=== PATIENT | female | born 1955 | race Caucasian/White ===

== ENCOUNTER → 2020-07-25 12:49 | Outpatient (CLI) | payer MEDICARE, SELFPAY ==
--- NOTE | ~2020-07-25 | XR_ITS ---
EXAMINATION: XR knee RT 3V DATE: 07/25/2020 13:12 INDICATION: Right knee pain. TECHNIQUE: 4 views of right knee were obtained. COMPARISON: None. FINDINGS: Bone alignment is normal. No fracture. There is mild tricompartmental osteoarthritis. There is moderate sized knee joint effusion. IMPRESSION: 1. Mild right knee osteoarthritis. 2. Moderate-sized right knee joint effusion. Reviewed, dictated and finalized at location A. INE OILER
== END ==
PROVIDERS: PCP Family Medicine; Visit Provider Family Medicine
DX: M17.11 Unilateral primary osteoarthritis, right knee (principal); M25.461 Effusion, right knee
CPT/HCPCS: 73562

== ENCOUNTER → 2021-07-16 09:59 | Outpatient (CLI) | payer MEDICARE, SELFPAY ==
--- NOTE | ~2021-07-16 | MM_ITS ---
EXAMINATION: MM screening elle BI w miko HISTORY: Screening mammogram TECHNIQUE: Craniocaudal and mediolateral oblique 3-D tomosynthesis images were obtained and synthetic 2-D images were generated. CAD analysis was submitted and interpreted. COMPARISON: No prior mammogram is available for comparison at this institution. BREAST PARENCHYMAL COMPOSITION: There are scattered areas of fibroglandular density. FINDINGS: There is no evidence of suspicious mass, calcification, or architectural distortion to sugg est malignancy in either breast. There has been no suspicious interval change. IMPRESSION: 1. No mammographic evidence of malignancy. 2. Recommend routine screening mammography in one year. BI-RADS Category 1: Negative Reviewed, dictated and finalized at location A. ILATION CLERK
== END ==
PROVIDERS: Visit Provider Physician Assistant
DX: Z12.31 Encounter for screening mammogram for malignant neoplasm of breast (principal)
CPT/HCPCS: 77063; 77067

== ENCOUNTER → 2021-08-12 13:15 | Outpatient (CLI) | payer MEDICARE, SELFPAY ==
--- NOTE | ~2021-08-12 | DEXA_ITS ---
Bone Density Report Name: AZAM EL Age: 66 Sex: Female Ethnicity: White Date of : 1955 Indication: postmenopausal; screening for osteoporosis; prior fracture; Referring Provider: Mandy Mac Study: Bone densitometry was performed. Exam Date: August 12, 2021 Accession number: [id number] Bone Density: Region BMD T-score Z-score Classification AP Spine (L1-L4) 0.903 -1.3 0.7 Osteopenia Femoral Neck (Left) 0.599 -2.3 -0.6 Osteopenia Total Hip (Left) 0.843 -0.8 0.6 Normal Femoral Neck (Right) 0.605 -2.2 -0.5 Osteopenia Total Hip (Right) 0.829 -0.9 0.5 Normal Total Hip Mean 0.836 -0.9 0.6 Normal World Health Organization criteria for BMD impression classify patients as: Normal (T-score at or above -1.0), Osteopenia (T-score between -1.0 and -2.5), or Osteoporosis (T-score at or below -2.5). 10-year Fracture Risk(1): Major Osteoporotic Fracture 20% Hip Fracture 3.9% Reported Risk Factors: [place] (), Neck BMD=0.599, BMI=27.5, previous fracture (1) FRAX(R) Version 3.08. Fracture probability calculated for an untreated patient. Fracture probability may be lower if the patient has received treatment. Clinical Information Provided by Patient: Has had a low trauma fracture Has used the following medications: Vitamin D Patient maximum height was 63.6 Menopause Age: 52 Does not regularly consume dairy products Drinks caffeinated beverages Onset of menses at age 9 Number of children 2 Impression: The patient has low bone mass, based on the Left Femoral Neck T-score. The patient has an estimated ten-year risk of hip fracture of 3.9% and an estimated ten-year risk of major fracture of 20%, based on the WHO FRAX algorithm. The patient has risk factors, including: previous fracture. Discussion: BONE DENSITY IS LOW AT ONE OR MORE SKELETAL SITES. THE PATIENT'S BMD AND CLINICAL RISK FACTORS CONTRIBUTE TO THIS PATIENT'S HIGH RISK OF FRACTURE. This patient's lowest T-score is low at one or more skeletal sites. It meets the World Health Organization's (WHO) criteria for ?low bone mass? (T-score between -1.0 and -2.5). The patient's 10-year risk of hip fracture and 10 year risk of a major osteoporotic fracture as calculated by FRAX exceeds the threshold where pharmacological therapy is recommended by the National Osteoporosis Foundation (NOF). However, all treatment decisions require clinical judgment and consideration of individual patient factors, including patient preferences, comorbidities, previous drug use, risk factors not captured in the FRAX model (e.g., frailty, falls, vitamin D deficiency, increased bone turnover, interval significant decline in bone density) and possible under or overestimation of fracture risk by FRAX. The patient should follow a healthful lifestyle (good nutrit
== END ==
PROVIDERS: PCP Family Medicine; Visit Provider Physician Assistant
DX: Z78.0 Asymptomatic menopausal state (principal); M85.88 Other specified disorders of bone density and structure, other site; M85.852 Other specified disorders of bone density and structure, left thigh; M85.851 Other specified disorders of bone density and structure, right thigh
CPT/HCPCS: 77080

== ENCOUNTER 2022-06-06 07:29 | Outpatient (CLI) | payer MEDICARE, SELFPAY ==
--- NOTE | 2022-06-06 07:45 | ECG_ITS ---
Measurements Intervals [place] Rate: 67 P: 50 SC: 187 QRS: 17 QRSD: 81 T: 62 QT: 374 QTc: 395 Interpretive Statements SINUS RHYTHM LOW QRS VOLTAGE IN PRECORDIAL LEADS BORDERLINE ECG NO PREVIOUS ECG AVAILABLE FOR COMPARISON Electronically Signed On 06-06-2022 8:08:36 SOLE MOLDING MACHINE OPERATOR by Emmanuel Cam D.O.
--- NOTE | 2022-06-06 07:45 | ECHO_ITS ---
Patient Info Name: Radha Colby Age: 67 years : 1955 Gender: Female Ht: 63 in Wt: 152 lbs BSA: 1.77 m2 HR: 70 bpm BP: 120 / 70 mmHg Heart Rhythm: Sinus Rhythm Technical Quality: Good Exam Date: 06/06/2022 7:55 AM Exam Location: [facility] Patient Status: Outpatient Admit Date: 06/06/2022 Staff Ordering Physician: Mandy Mac PA-C Telecommunications Field Engineer: Anabela Mijares RDCS Attending Provider: Jes Wright MD Referring Physician: Bubba NARANJO; Exam Type: CA echo doppler color flow Study Info Indications R55 - Syncope and collapse Complete two-dimensional, color flow and Doppler transthoracic echocardiogram is performed. Summary 1. Complete two-dimensional, color flow and Doppler transthoracic echocardiogram is performed. 2. Trivial amount of mitral valve regurgitation in a structurally normal-appearing valve. 3. Otherwise unremarkable echocardiogram. Left Ventricle Left ventricular chamber dimension is normal. Left ventricular systolic function is normal, estimated at 60-65%. The left ventricular diastolic function is normal. Right Ventricle Right ventricular chamber dimension is normal. Left Atria Left atrial chamber dimension is normal. Right Atria Right atrial chamber dimension is normal. Aortic Valve The aortic valve is normal. Pulmonic Valve The pulmonic valve is normal. Mitral Valve The mitral valve has normal leaflets. There is trace mitral valve regurgitation. Tricuspid Valve The tricuspid valve leaflets are normal. Pericardium/Pleural The pericardium appears normal. Aorta The aortic root size at the sinus of Valsalva is normal. Left Ventricular Outflow Tract Name Value Normal LVOT 2D LVOT Diameter 1.9 cm LVOT Doppler LVOT Peak Gradient 6 mmHg LVOT Mean Gradient 3 mmHg LVOT VTI 27 cm LVOT VTI/AV VTI Ratio 1.0 LVOT Stroke Volume 81 ml LVOT CO 5.3 l/min LVOT CI 3.0 l/min/m2 Pulmonic Valve Name Value Normal RVOT Doppler RVOT Peak Gradient 2 mmHg PV Doppler PV Peak Gradient 3 mmHg Mitral Valve Name Value Normal MV Doppler MV Decel [place] 525 cm/s2 MV PHT 46 ms MV Area (PHT) 4.8 cm2 4.0-5.0 MV Regurgitati
== END 2022-06-06 07:30 | disposition home or self-care (01) ==
PROVIDERS: PCP Family Medicine; Visit Provider Family Medicine
DX: R55 Syncope and collapse (principal); R94.31 Abnormal electrocardiogram [ECG] [EKG]
CPT/HCPCS: 93005; 93306

== ENCOUNTER → 2022-08-26 10:27 | Outpatient (CLI) | payer MEDICARE, SELFPAY ==
--- NOTE | ~2022-08-26 | XR_ITS ---
EXAM: XR wrist LT 2V DATE: 08/26/2022 11:16 HISTORY: M25.532 - Pain in left wrist . COMPARISON: None available. FINDINGS: Normal mineralization. No fracture or dislocation. No lytic or blastic lesion. Mild degene rative change at the triscaphe joint, radiocarpal joint, and trapeziometacarpal joint. No erosion or periosteal change. Soft tissue swelling about the wrist. 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 Reviewed, dictated and finalized at location K.
== END ==
PROVIDERS: PCP Family Medicine; Visit Provider Physician Assistant Medical
DX: M19.032 Primary osteoarthritis, left wrist (principal)
CPT/HCPCS: 73100

== ENCOUNTER → 2022-09-23 16:10 | Outpatient (CLI) | payer MEDICARE, SELFPAY ==
--- NOTE | ~2022-09-23 | MM_ITS ---
EXAMINATION: MM screening [place] BI w miko HISTORY: Screening mammogram TECHNIQUE: Craniocaudal and mediolateral oblique 3-D tomosynthesis images were obtained and synthetic 2-D images were generated. CAD analysis was submitted and interpreted. COMPARISON: 07/16/2021 BREAST PARENCHYMAL COMPOSITION: There are scattered areas of fibroglandular density. FINDINGS: Architectural distortion in the upper outer quadrant of the left breast likely relates to p rior excisional biopsy. No suspicious mass, calcification, or architectural distortion are identified in either breast to suggest malignancy. There has been no suspicious interval change. IMPRESSION: 1. No mammographic evidence of malignancy. 2. Recommend routine screening mammography in one year. BI-RADS Category 2: Benign finding(s). Reviewed, dictated and finalized at location A.
== END ==
PROVIDERS: PCP Family Medicine; Visit Provider Physician Assistant
DX: Z12.31 Encounter for screening mammogram for malignant neoplasm of breast (principal)
CPT/HCPCS: 77063; 77067

== ENCOUNTER → 2023-05-11 12:06 | Outpatient (CLI) | payer MEDICARE, SELFPAY ==
--- NOTE | ~2023-05-11 | XR_ITS ---
Right ankle Technique: AP, oblique, and lateral views were obtained. Clinical History: Pain Findings: No acute fracture or dislocation is seen. Osseous alignment is anatomic. Ankle mortise and other visualized joint spaces are preserved. Soft tissues are otherwise unremarkable. Impression: Unremarkable right ankle. Reviewed, dictated and finalized at location . ING AGENT Impression: Unremarkable right ankle.
== END ==
PROVIDERS: PCP Physician Assistant Medical; Visit Provider Physician Assistant Medical
DX: M25.571 Pain in right ankle and joints of right foot (principal)
CPT/HCPCS: 73610

== ENCOUNTER 2023-06-09 12:27 | Outpatient (CLI) | payer MEDICARE, SELFPAY ==
--- NOTE | ~2023-06-09 | US_ITS ---
EXAMINATION: US carotid duplex BI DATE: 06/09/2023 12:54 INDICATION: Syncope and collapse. TECHNIQUE: Grayscale, color Doppler, and pulsed Doppler images of the cervical carotid arteries were obtained. The degree of vessel stenosis is placed in one of the following categories: normal, <50%, 5 0-69%, >=70% but less than near-occlusion, near-occlusion, or total occlusion. Note that percent sten osis relative to normal distal artery lumen diameter is indirectly measured from velocity measurement s as described by Michael, et al. Radiology 2003; 229:340-346. COMPARISON: None. FINDINGS: RIGHT: The right common carotid artery (CCA) peak systolic velocity (PSV) is 97 cm/s. The right internal car otid artery (ICA) PSV is 73 cm/s. The right ICA end-diastolic velocity (EDV) is 25 cm/s. The right IC A/CCA PSV ratio is 0.8. Grayscale and color Doppler images demonstrate no evident atherosclerotic nick que or stenosis in the ICA. The external carotid artery (ECA) PSV is 58 cm/s. There is antegrade flow in the right vertebral artery. LEFT: The left CCA PSV is 114 cm/s. The left ICA PSV is 65 cm/s. The left ICA EDV is 20 cm/s. The left ICA/ CCA PSV ratio is 0.6. Grayscale and color Doppler images demonstrated no evident atherosclerotic plaq ue or stenosis in the ICA. The ECA PSV is 61 cm/s. There is antegrade flow in the left vertebral ana maria ry. IMPRESSION: 1. No evident atherosclerotic plaque or stenosis in the right internal carotid artery. 2. No evident atherosclerotic plaque or stenosis in the left internal carotid artery. Reviewed, dictated and finalized at location A. ITION WORKER IMPRESSION: 1. No evident atherosclerotic plaque or stenosis in the right internal carotid artery. 2. No evident atherosclerotic plaque or stenosis in the left internal carotid a rtery.
== END 2023-06-09 12:28 | disposition home or self-care (01) ==
PROVIDERS: PCP Family Medicine; Visit Provider Physician Assistant
DX: R55 Syncope and collapse (principal); E78.5 Hyperlipidemia, unspecified
CPT/HCPCS: 93880

== ENCOUNTER 2023-10-22 13:55 | Outpatient (CLI) | payer MEDICARE, SELFPAY ==
--- NOTE | ~2023-10-22 | MM_ITS ---
EXAMINATION: MM screening [facility] BI w miko HISTORY: Screening TECHNIQUE: Craniocaudal and mediolateral oblique 3-D tomosynthesis images were obtained and synthetic 2-D images were generated. CAD analysis was submitted and interpreted. COMPARISON: Comparison to multiple prior studies sequentially, with oldest reviewed study dated 07/16. BREAST PARENCHYMAL COMPOSITION: There are scattered areas of fibroglandular density. FINDINGS: There is no evidence of suspicious mass, calcification, or architectural distortion to sugg est malignancy in either breast. There has been no suspicious interval change. IMPRESSION: 1. No mammographic evidence of malignancy. 2. Recommend routine screening mammography in one year. BI-RADS Category 1: Negative Reviewed, dictated and finalized at location B.
== END 2023-10-22 13:56 ==
PROVIDERS: PCP Family Medicine; Visit Provider Family Medicine
DX: Z12.31 Encounter for screening mammogram for malignant neoplasm of breast (principal)
CPT/HCPCS: 77063; 77067

== ENCOUNTER 2023-10-30 10:55 | Outpatient (CLI) | payer MEDICARE, SELFPAY ==
--- NOTE | ~2023-10-30 | DEXA_ITS ---
Bone Density Report Name: AZAM EL Age: 68 Sex: Female Ethnicity: White Date of : 1955 Indication: osteopenia; prior fracture; Referring Provider: ANY, PORFIRIO Wynn Study: Bone densitometry was performed. Exam Date: October 30, 2023 Accession number: [id number] Bone Density: Region BMD T-score Z-score Classification AP Spine (L1-L4) 0.887 -1.5 0.7 Osteopenia Femoral Neck (Left) 0.584 -2.4 -0.6 Osteopenia Total Hip (Left) 0.833 -0.9 0.6 Normal Femoral Neck (Right) 0.642 -1.9 0.0 Osteopenia Total Hip (Right) 0.828 -0.9 0.6 Normal Total Hip Mean 0.831 -0.9 0.6 Normal World Health Organization criteria for BMD impression classify patients as: Normal (T-score at or above -1.0), Osteopenia (T-score between -1.0 and -2.5), or Osteoporosis (T-score at or below -2.5). 10-year Fracture Risk(1): Major Osteoporotic Fracture 21% Hip Fracture 4.9% Reported Risk Factors: [place] (), Neck BMD=0.584, BMI=27.7, previous fracture (1) FRAX(R) Version 3.08. Fracture probability calculated for an untreated patient. Fracture probability may be lower if the patient has received treatment. Previous Exams: Region Exam Age BMD T-score BMD Change BMD Change Date g/cm2 vs Baseline vs Previous AP Spine(L1-L4) 10/30/2023 68 0.887 -1.5 -0.016 -0.016 08/12/2021 66 0.903 -1.3 Total Hip(Left) 10/30/2023 68 0.833 -0.9 -0.010 -0.010 08/12/2021 66 0.843 -0.8 Total Hip(Right) 10/30/2023 68 0.828 -0.9 -0.001 -0.001 08/12/2021 66 0.829 -0.9 *Denotes significance at 95% confidence level, LSC for AP Spine = 0.022 g/cm2, LSC for Total Hip = 0.027 g/cm2 Clinical Information Provided by Patient: Has had a low trauma fracture Has used the following medications: Vitamin D, Calcium Patient maximum height was 63.6 Menopause Age: 52 Does not regularly consume dairy products Drinks caffeinated beverages Onset of menses at age 9 Number of children 2 Impression: The patient has low bone mass, based on the Left Femoral Neck T-score. The patient has an estimated ten-year risk of hip fracture of 4.9% and an estimated ten-year risk of major fracture of 21%, based on the WHO FRAX algorithm. The patient has risk factors, including: previous fracture. No significant bone loss was observed. Discussion: BONE DENSITY IS LOW AT ONE OR MORE SKELETAL SITES. THE PATIENT'S BMD AND CLINICAL RISK FACTORS CONTRIBUTE TO THIS PATIENT'S HIGH RISK OF FRACTURE. This patient's lowest T-scor
== END 2023-10-30 10:56 ==
PROVIDERS: PCP Family Medicine; Visit Provider Physician Assistant
DX: Z78.0 Asymptomatic menopausal state (principal); M85.88 Other specified disorders of bone density and structure, other site; M85.852 Other specified disorders of bone density and structure, left thigh; M85.851 Other specified disorders of bone density and structure, right thigh
CPT/HCPCS: 77080

== ENCOUNTER 2024-02-01 18:30 | Observation (INO) | payer MEDICARE, SELFPAY ==
--- NOTE | ~2024-02-01 | CT_ITS ---
Non-contrast Head CT History: Syncope Technique: Axial non-contrast imaging of the brain was performed. Dose reduction technique was used on this scan by utilizing automated exposure control and iterative reconstruction technique. The dose -length product (DLP) was 605.33 mGy-cm. Findings: There is no evidence of intracranial hemorrhage, mass lesion, or acute infarct. Brain par enchyma appears normal. The ventricles and subarachnoid spaces are normal in size. The calvarium ap pears normal. The visualized paranasal sinuses and mastoid air cells are clear. Impression: No significant abnormality seen. Reviewed, dictated and finalized at location . Impression: No significant abnormality seen.
[2024-02-01 18:52] VITALS: BP 105/70; PULSE 66; RESP 16; TEMP 36.4; O2SAT 99
--- NOTE | 2024-02-01 18:56 | ECG_ITS ---
Test Date: 2024-02-01 19:04:20 Measurements Intervals [place] Rate: 62 P: 39 WA: 216 QRS: -2 QRSD: 81 T: 63 QT: 391 QTc: 398 Interpretive Statements SINUS RHYTHM WITH FIRST DEGREE AV BLOCK BASELINE ARTIFACT- I, II, III, AVR, AVL, AVF, V1 BORDERLINE ECG No previous ECG available for comparison Electronically Signed On 02-01-2024 20:13:40 CDT by Emmanuel Cam D.O.
[2024-02-01 23:28] VITALS: PULSE 64; PULSE 70; RESP 22; TEMP 36.3; O2SAT 100
[2024-02-01 23:29] VITALS: O2SAT 100
[2024-02-02] VITALS (9 sets, daily range): BP systolic 116–146; BP diastolic 62–87; PULSE 65–76; RESP 16–18; TEMP 36.4–37; O2SAT 96–100; BMI 27.5
--- NOTE | 2024-02-02 01:19 | ED.SYNCOPE ---
HPI - Syncope General Chief Complaint: Syncope Stated Complaint: syncope Time Seen by Provider: 02/01/24 23:26 Source: patient and family Mode of arrival: EMS Limitations: no limitations History of Present Illness HPI narrative: Patient is a 68-year-old female who presents to the ER following a syncopal episode. She reports she has had a sore throat for the last couple of days. Patient says she took a children's Benadryl earlier today to help with her allergies. She reports she was in the basement and took a 15-20 minute nap, then walked upstairs to use the restroom. Patient and her reports she was feeling lightheaded so she needed her 's help to sit down on the toilet. She loss consciousness for 10-15 seconds while sitting on the toilet. Patient's reports she got very hot and sweaty prior to passing out. Her reports she did not hit her head when she lost consciousness, but slumped over. Patient's reports she was out of it and he was worried she was having a stroke. Her called EMS and patient was brought to the ER for evaluation. Patient denies any medical history. She reports she has a history of passing out when she was younger, around the age of 13. Patient reports at that time she had appendicitis. She denies loss of consciousness or syncopal episodes in the last 10 years. Patient reports she has a PCP and get her blood work drawn often. She is currently asymptomatic and denies chest pain, shortness a breath, or headache. Related Data Home Medications Medication Instructions Recorded Confirmed fish, borage, flaxseed oils-omega 1 cap PO DAILY 05/15/20 11/23/23 3,6,9 cb #1 400 mg-400 mg-400 mg cap ([place] 3-6-9 Complex) multivitamin,wk-zzzj-axprrugr 1 tablet PO DAILY 05/15/20 11/23/23 (Complete Multivitamin tablet) turmeric root extract 500 mg 500 mg PO DAILY 05/15/20 11/23/23 capsule cholecalciferol (vitamin D3) 50 50 mcg PO DAILY 05/22/22 11/23/23 mcg (2,000 unit) capsule Allergies Allergy/AdvReac Type Severity Reaction Status Date / Time No Known Allergies Allergy Verified 11/23/23 09:30 Review of Systems Review of Systems: All systems reviewed & are unremarkable except as noted in HPI and below PMFSH Past Medical History Medical History Allergies Chronic patellofemoral pain of right knee Chronic sinusitis Effusion of knee joint HLD (hyperlipidemia) Left knee DJD Lump in throat Normal colonoscopy (~2017) Osteopenia Osteoporosis Right knee DJD Surgical History Surgical History H/O lumpectomy History of appendectomy History of tubal ligation [place] teeth removed Family History Family History Mother Diabetes mellitus Hypercholesteremia Cerebrovascular accident Father Diabetes mellitus Heart disease Other Breast cancer Other Thyroid disorder Social History Social History Smoking status: Never smoker Alcohol intake: never Substance use: never Substance use type: does not use Lack of Transportation: No Lack of Food: Never True Current Housing: I Have Housing Concerned About Future Housing: No Difficulty Paying Gas/Electric Bills: No Difficulty Paying for Meds: No Currently Unemployed: No Education: Master's Degree or Higher Difficulty w/ Childcare or Family Care: No Living arrangements: with family Occupation/Education: retired Gender identity (if verbalized by the patient): Female Exam Narrative: GENERAL: Well appearing, well-nourished, non-toxic, in no acute distress. HEAD: Normocephalic, atraumatic. NECK: Supple. No adenopathy, no masses. RESPIRATORY: Airway patent, respirations nonlabored. Clear to auscultation bilat
[2024-02-02] MEDS: SODIUM CHLORIDE 0.9% IV 1,000 ML 999 ML IV CONT (01:33)
[2024-02-02 01:45] LABS: Basophils Percent Auto 0.4 % (0.2-1.2); Eosinophils Percent Auto 0.5 % (0-4.4); Hematocrit 40.8 % (37.0-47.0); Hemoglobin 14.3 g/dL (12.0-15.0); Immature Granulocyte Absolute 0.03 K/mm3 (0.00-0.031); Immature Granulocyte Percent A 0.4 % (0-0.5); Lymphocytes Absolute Auto 2.92 K/mm3 (0.9-3.2); Lymphocytes Percent Auto 36.6 % (18.3-44.2); Mean Corpuscular Hemoglobin 31.7 pg (26-34); Mean Corpuscular Volume 90.5 fl (80-100); Mean Platelet Volume 8.2 fl (7.4-10.4); Monocytes Absolute Auto 0.6 K/mm3 (0.1-0.6); Monocytes Percent Auto 7.3 % (2.6-8.5); Neutrophils Absolute Auto 4.4 K/mm3 (1.3-6.7); Neutrophils Percent Auto 54.8 % (45.5-73.1); Platelet Count Result 319 k/mm3 (150-375); Red Blood Count 4.51 M/mm3 (4.2-5.4); Red Cell Distribution Width 11.5 % (11.5-14.5)
[2024-02-02 01:54] LABS: Add Urine Microscopic? YES; Appearance Urine Cloudy (Clear); Bacteria Urine None Seen /hpf; Bilirubin Urine Negative (Negative); Blood Urine Negative (Negative); Color Urine Yellow (Yellow); Glucose Urine UA Negative (Negative); Ketones Urine Negative (Negative); Leukocyte Esterase Ur Negative LEU/UL (Negative); Need Manual Microscopic Reviewed; Nitrate Urine Negative (Negative); Non Pathogenic Casts 0-2; Protein Urine Negative (Negative); RBC Urine 0-2 /hpf (0-2); Specific Grav Ur 1.005 (1.001-1.035); Squamous Epithelial Cell Urine None Seen /hpf (Few); Urobilinogen Urine 0.2 mg/dL (<2.0); WBC Urine 0-5 /hpf (0-3)
[2024-02-02 01:56] LABS: Partial Thromboplastin Time 25.1 Seconds (22.3-36.8); Prothrombin Time 13.2 Seconds (11.1-14.7)
[2024-02-02 01:58] LABS: Alanine Aminotransferase 19 U/L (6-35); Albumin Level 4.7 g/dL (3.5-5.1); Alkaline Phosphatase 66 U/L (38-126); Anion Gap 8 mmol/L (4-12); Aspartate Amino Transferase 32 U/L (14-36); Bilirubin,Total 0.8 mg/dL (0.2-1.3); Blood Urea Nitrogen 5 mg/dL (7-17); Calcium 9.4 mg/dL (8.4-10.2); Carbon Dioxide 27 mmol/L (22-30); Chloride 95 mmol/L (98-107); Estimated CRCL calculation 69 ml/min; Estimated Glomerular Filt Rate > 60; Glucose 110 mg/dL (65-110); Magnesium 2.1 mg/dL (1.6-2.3); Potassium 4.1 mmol/L (3.4-5.0); Sodium 130 mmol/L (137-145)
[2024-02-02 02:01] LABS: D Dimer 0.37 ug/mL (<0.48)
[2024-02-02 02:10] LABS: NT Pro B Type Natriuretic Pept < 20 pg/mL (19.9-100); Troponin I < 0.012 ng/mL (0.000-0.034)
[2024-02-02 02:14] LABS: Influenza A QL RT-PCR Negative (Negative); Influenza B QL RT-PCR Negative (Negative); RSV RNA, RT-PCR Negative (Negative); SARS-CoV-2 RNA PCR Negative (Negative)
[2024-02-02] MEDS: SODIUM CHLORIDE 0.9% IV 1,000 ML 125 ML IV CONT ×2 (03:20→11:19)
--- NOTE | 2024-02-02 04:09 | ADMGEN ---
This patient, Radha Colby, was admitted to Medical Room 251-01. Patient/family oriented to hospital policies and general routines including ID bracelet, bed and alarms, visiting hours, pain management, procedures, bathroom and other care routines, personal items, smoking policy, room service/diet, and visiting hours. Information on how to activate the Rapid Response Team has been discussed. Patient/Family are encouraged to report perceived risks to care and to ask questions if they do not understand what they are told or what they should do.
--- NOTE | 2024-02-02 07:58 | PM.CNCAR ---
Assessment and Plan Assessment and plan (1) Episode of syncope: Code(s): R55 - Syncope and collapse Status: Acute Assessment and Plan: Probably vasovagal episode in setting of dehydration and on toilet. Advise to keep well hydrated and if feeling dizzy to lie down immediately to avoid passing out. She is receiving IVF. Obtain echo. If echo is OK and no longer dizzy, may d/c home from cardiology standpoint. (2) Acute dehydration: Code(s): E86.0 - Dehydration Status: Acute History of Present Illness History of Present Illness Consult date/time: 02/02/24 07:58 Reason For Visit: Syncopal epsiode, Dehydration Narrative: 68 yr old woman presents to ER with syncope. She has no cardiac issues. She reports having sore throat for a couple of days, took Benadryl yesterday. She felt lightheadedness, went to restroom and while sitting on toilet, became hot and sweaty and passed out for 15 seconds. She can walk 3 miles normally without any problems. She feels great now. Denies any more dizziness, no chest pain or sob or palpitations. Review of Systems Review of Systems: All systems reviewed & are unremarkable except as noted in HPI and below Constitutional: Constitutional: Reports as per HPI, Denies chills and Denies fever(s) Cardiovascular: Cardiovascular: Reports as per HPI, Denies chest pain and Denies irregular heart rhythm Respiratory: Respiratory: Reports as per HPI and Denies dyspnea Gastrointestinal: Gastrointestinal: Reports as per HPI and Denies abdominal pain Genitourinary: Genitourinary: Reports as per HPI and Denies dysuria Musculoskeletal: Musculoskeletal: Reports as per HPI Neurologic: Reports as per HPI, Reports dizziness and Reports syncope [facility] Past Medical History Medical History Allergies Chronic patellofemoral pain of right knee Chronic sinusitis Effusion of knee joint HLD (hyperlipidemia) Left knee DJD Lump in throat Normal colonoscopy (~2017) Osteopenia Osteoporosis Right knee DJD Surgical History Surgical History H/O lumpectomy History of appendectomy History of tubal ligation [place] teeth removed Family History Family History Mother Diabetes mellitus Hypercholesteremia Cerebrovascular accident Father Diabetes mellitus Heart disease Other Breast cancer Other Thyroid disorder Social History Social History Smoking status: Never smoker Alcohol intake: never Substance use: never Substance use type: does not use Do You Feel Safe in your Home?: Yes Lack of Transportation: No Lack of Food: Never True Current Housing: I Have Housing Concerned About Future Housing: No Difficulty Paying Gas/Electric Bills: No Difficulty Paying for Meds: No Currently Unemployed: No Education: Master's Degree or Higher Difficulty w/ Childcare or Family Care: No Living arrangements: with family Occupation/Education: retired Gender identity (if verbalized by the patient): Female Spiritual care concerns: No Meds Home Medications and Allergies Home Medications Medication Instructions Recorded Confirmed Type fish, borage, flaxseed oils-omega 1 cap PO DAILY 05/15/20 02/02/24 History 3,6,9 cb #1 400 mg-400 mg-400 mg cap ([place] 3-6-9 Complex) multivitamin,ob-dxap-lmcptoqh 1 tablet PO DAILY 05/15/20 02/02/24 History (Complete Multivitamin tablet) turmeric root extract 500 mg 500 mg PO DAILY 05/15/20 02/02/24 History capsule cholecalciferol (vitamin D3) 50 50 mcg PO DAILY 05/22/22 02/02/24 History mcg (2,000 unit) capsule Allergies Allergy/AdvReac Type Severity Reaction Status Date / Time No Known Allergies Allergy Verified 02/02/24 03:35 Vital S
--- NOTE | 2024-02-02 08:26 | PM.SD2 ---
Same Day Admit/Disch: HPI History of Present Illness Chief complaint: Syncopal epsiode, Dehydration Narrative: This is a 68-year-old female with a past medical history significant for hyperlipidemia, osteoporosis, and seasonal allergies who presents to the emergency room after suffering a syncopal episode. The patient provides the following history earlier this week she started having sore throat. She felt that her symptoms were related to her seasonal allergies. She states that yesterday she had an apple and that was about it because her throat was hurting and then she went down to the basement to take a 20 minute. She had also taken some children's Benadryl earlier in the day because she was having this sore throat and seasonal allergy symptoms. After her nap she went upstairs and went to the bathroom and she called her because she was not feeling well. While use with her in the bathroom she went unresponsive for about 20 seconds. Her states she had ?glassy eyes . The patient states she has had syncopal episodes before and she knows the symptoms coming on and can sit down before falling and hitting her head. Upon arrival to the emergency room labs were fairly unremarkable. Her sodium was low at 130. Urinalysis was negative and viral respiratory panel was negative. Her vital signs were stable blood pressure 117/62, heart rate 73, 99% on room air and afebrile. The patient was given a L of fluids will and started on continuous fluids at 125 mL an hour. She was admitted for observation. Dr. Cam was consulted by the emergency room provider a and recommended an outpatient echocardiogram and follow-up with PCP. The patient's symptoms have all resolved after IV fluid resuscitation. She is eating and drinking a diet and denies any pain. She also denies headache, dizziness, chest pain, shortness a breath, abdominal pain, nausea, vomiting, diarrhea or constipation. She does have a sore throat but it is much improved over the last few days. Overall the patient did well was discharged home in stable condition with PCP follow-up in an outpatient echo. [facility] Past Medical History Medical History Allergies Chronic patellofemoral pain of right knee Chronic sinusitis Effusion of knee joint HLD (hyperlipidemia) Left knee DJD Lump in throat Normal colonoscopy (~2016) Osteopenia Osteoporosis Right knee DJD Surgical History Surgical History H/O lumpectomy History of appendectomy History of tubal ligation [place] teeth removed Family History Family History Mother Diabetes mellitus Hypercholesteremia Cerebrovascular accident Father Diabetes mellitus Heart disease Other Breast cancer Other Thyroid disorder Social History Social History Smoking status: Never smoker Alcohol intake: never Substance use: never Substance use type: does not use Do You Feel Safe in your Home?: Yes Lack of Transportation: No Lack of Food: Never True Current Housing: I Have Housing Concerned About Future Housing: No Difficulty Paying Gas/Electric Bills: No Difficulty Paying for Meds: No Currently Unemployed: No Education: Master's Degree or Higher Difficulty w/ Childcare or Family Care: No Living arrangements: with family Occupation/Education: retired Gender identity (if verbalized by the patient): Female Spiritual care concerns: No Same Day Admit/Disch: Med Pre-admit Medications Home Medications Medication Instructions Recorded Confirmed Type fish, borage, flaxseed oils-omega 1 cap PO DAILY 05/15/20 02/02/24 History 3,6,9 cb #1 400 mg-400 mg-400 mg cap ([place] 3-6-9 Complex) multivitamin,cc-mupw-aszdamkj 1 tablet PO DAILY 05/15/20 02/02/24 Hist
== END 2024-02-02 15:16 | disposition home or self-care (01) ==
LOC: ANHED 02-02 03:08 → ANH2MED 02-02 03:51
PROVIDERS: Admitting Provider Internal Medicine; Emergency Provider Registered Nurse; PCP Family Medicine; Visit Provider Nurse Practitioner Acute Care
DX: R55 Syncope and collapse (principal); E86.0 Dehydration; E78.5 Hyperlipidemia, unspecified; M81.0 Age-related osteoporosis without current pathological fracture; Z20.822 Contact with and (suspected) exposure to COVID-19
CPT/HCPCS: 36415; 70450; 80053; 81001; 83735; 83880; 84484; 85025; 85380; 85610; 85730; 87637; 93005; 96360; 96361; 99285; G0378; J7030

== ENCOUNTER 2024-02-18 08:26 | Outpatient (CLI) | payer MEDICARE, SELFPAY ==
--- NOTE | 2024-02-18 08:45 | ECHO_ITS ---
Patient Info Name: Radha Colby Age: 68 years : 1955 Gender: Female Ht: 63 in Wt: 150 lbs BSA: 1.76 m2 HR: 78 bpm BP: 97 / 66 mmHg Technical Quality: Good Exam Date: 02/18/2024 8:57 AM Exam Location: Echo Lab Patient Status: Outpatient Admit Date: 02/18/2024 Staff Ordering Physician: Jes Wright MD Attending Provider: Jes Wright MD Referring Physician: Kyle QUICK; Exam Type: CA echo doppler color flow Study Info Complete two-dimensional, color flow and Doppler transthoracic echocardiogram is performed. Strain analysis performed. Summary 1. Complete two-dimensional, color flow and Doppler transthoracic echocardiogram is performed. 2. LV size is normal. LV wall thickness is normal. LV systolic function is normal. The LVEF is calculated to be 65% with normal wall motion. 3. Normal LV diastolic function. 4. The right ventricle size and systolic function is normal. 5. No significant valvular pathologies found on this study. Left Ventricle LV size is normal. LV wall thickness is normal. LV systolic function is normal. The LVEF is calculated to be 65% with normal wall motion. Normal LV diastolic function. Left ventricular global strain is estimated at -15.6%. Right Ventricle The right ventricle size and systolic function is normal. Left Atria The left atrial size is normal. Right Atria The right atrial size is normal. Aortic Valve The aortic valve is trileaflet and appears thickened. There is no aortic stenosis. There is mild aortic regurgitation. Pulmonic Valve The pulmonic valve appears normal. There is trivial pulmonary regurgitation. Mitral Valve The mitral valve leaflets are thin and pliable. There is trivial mitral regurgitation. Tricuspid Valve The tricuspid valve is normal. There is mild tricuspid regurgitation. The measured PA systolic pressure is 29 mmHg. Pericardium/Pleural There is no pericardial effusion seen. Inferior Vena Cava Normal inferior vena cava with >50% collapse upon inspiration consistent with normal right atrial pressure, 3 mmHg. Aorta The aortic root at the level of the sinus of Valsalva is normal in size measuring 2.6 cm. Left Ventricular Outflow Tract Name Value Normal LVOT 2D LVOT Diameter 2.0 cm Pulmonic Valve Name Value Normal RVOT Doppler RVOT Peak Gradient 2 mmHg PV Doppler PV Peak Gradient 2 mmHg Mitral Valve Name Value Normal MV Doppler MV Decel [place] 326 cm/s2 MV PHT 45 ms MV Area (PHT) 4.9 cm2 4.0-5.0 MV Diastolic Function MV E Peak Velocity
== END 2024-02-18 08:27 | disposition home or self-care (01) ==
PROVIDERS: PCP Family Medicine; Visit Provider Family Medicine
DX: R55 Syncope and collapse (principal)
CPT/HCPCS: 93306

== ENCOUNTER 2024-07-31 11:10 | Emergency (ER) | payer MEDICARE, SELFPAY ==
--- NOTE | ~2024-07-31 | XR_ITS ---
Portable chest x-ray Comparison: None Clinical History: Indigestion Findings: Lungs are clear, without focal consolidation or pleural effusion. Cardiomediastinal silho uette is unremarkable. Bones and soft tissues are unremarkable. Impression: Normal chest. Reviewed, dictated and finalized at location . Impression: Normal chest.
--- OUTSIDE RECORDS SUMMARY | 2024-07-31 11:12 | XMS_ITS | Clinical Summary ---
Author Organization [facility] [address] Address [address] [place] [address] Care Team Providers Care Travel Trailer Components Assembler Name Role Phone Jes Wright MD Primary Care Provider [phone] Allergies No known active allergies Medications No known medications Active Problems No known active problems Surgical History Surgery Date Site/Laterality Comments APPENDECTOMY WISDOM TOOTH EXTRACTION TUBAL LIGATION Medical History Medical History Date Comments Hypercholesteremia Family History Medical History Relation Name Comments Arthritis Other Heart disease Other Hypertension Other Stroke Other Relation Name Status Comments Other Social History Tobacco Use Types Packs/Day Years Used Date Smoking Tobacco: Never Personal Safety Answer Date Recorded Getting School Help Needed Not on file 06/27 Comments Unknown Sex and Gender Information Value Date Recorded Sex Assigned at Not on file 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 Gender Identity Female 10/12/2020 10:34 PM CDT Sexual Orientation Not on file Obstetrics History Last Filed Vital Signs Vital Sign Reading Time Taken Comments Blood Pressure 113/73 10/16/2020 8:30 AM CDT Pulse 71 10/16/2020 8:30 AM CDT Temperature 36.6 C (97.8 F) 08/22/2020 10:33 AM CDT Respiratory Rate - - Oxygen Saturation - - Inhaled Oxygen Concentration - - Weight 68.5 kg (151 lb) 10/16/2020 8:30 AM CDT Height 162.6 cm (5' 4 ) 10/16/2020 8:30 AM CDT Body Mass Index 25.92 10/16/2020 8:30 AM CDT Plan of Treatment Not on file Insurance T MEDICARE T MEDICARE Care Teams Travel Trailer Components Assembler Relationship Specialty Start Date End Date Jes Wright MD PCP - General Family Medicine 08/22/20
--- OUTSIDE RECORDS SUMMARY | 2024-07-31 11:12 | XMS_ITS | Referral Summary ---
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
--- NOTE | 2024-07-31 11:17 | ECG_ITS ---
Test Date: 2024-07-31 11:25:40 Measurements Intervals [place] Rate: 75 P: 44 AK: 179 QRS: 15 QRSD: 82 T: 46 QT: 363 QTc: 407 Interpretive Statements SINUS RHYTHM POSSIBLE INFERIOR MYOCARDIAL INFARCTION , PROBABLY OLD [30 ms Q WAVE IN II/aVF] Compared to ECG 02/01/2024 19:04:20 Myocardial infarct finding now present First degree AV block no longer present Electronically Signed On 08-01-2024 11:11:46 CDT by Liam Neri M.D.
[2024-07-31 11:19] VITALS: BP 135/82; PULSE 81; RESP 18; TEMP 36.4; O2SAT 100
[2024-07-31 11:31] LABS: Basophils Percent Auto 0.6 % (0.2-1.2); Eosinophils Absolute Auto 0.1 K/mm3 (0-0.3); Eosinophils Percent Auto 0.8 % (0-4.4); Hematocrit 42.6 % (37.0-47.0); Hemoglobin 14.6 g/dL (12.0-15.0); Immature Granulocyte Absolute 0.02 K/mm3 (0.00-0.031); Immature Granulocyte Percent A 0.3 % (0-0.5); Lymphocytes Absolute Auto 2.71 K/mm3 (0.9-3.2); Lymphocytes Percent Auto 37.3 % (18.3-44.2); Mean Corpuscular HGB Conc 34.3 g/dl (32-36); Mean Corpuscular Hemoglobin 31.4 pg (26-34); Mean Corpuscular Volume 91.6 fl (80-100); Mean Platelet Volume 8.3 fl (7.4-10.4); Monocytes Absolute Auto 0.4 K/mm3 (0.1-0.6); Monocytes Percent Auto 5.9 % (2.6-8.5); Neutrophils Percent Auto 55.1 % (45.5-73.1); Platelet Count Result 310 k/mm3 (150-375); Red Blood Count 4.65 M/mm3 (4.2-5.4); Red Cell Distribution Width 11.9 % (11.5-14.5); White Blood Count 7.3 K/mm3 (4.5-10.0)
--- OUTSIDE RECORDS SUMMARY | 2024-07-31 11:35 | XMS_ITS | Referral Summary ---
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
--- OUTSIDE RECORDS SUMMARY | 2024-07-31 11:35 | XMS_ITS | Clinical Summary ---
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
--- NOTE | 2024-07-31 11:39 | ED.NAVMDI ---
HPI - Nausea/Vomiting/Diarrhea General Chief complaint: Nausea/Vomiting/Diarrhea Stated complaint: Indigestion x 3 days Time Seen by Provider: 07/31/24 11:29 History of Present Illness HPI Narrative: 69-year-old otherwise healthy female presenting to the emergency department for evaluation of indigestion sensation for last 3 days associated some diarrhea. Patient denies any chest pain or chest pressure states that she has some pain retrosternally the feels like she needs to burp or belch. Endorses 3 days of loose diarrhea as well. No recent travel or injuries. No recent antibiotic use. No at home with similar symptoms. Endorses some cough and congestion but no other flu-like symptoms. No shortness of breath. Patient denies any cardiac history, states she is not taking prescription medications regularly and otherwise is healthy. She has a family history of cardiac disease and was worried that could be heart related. Symptoms going on for last 3 days intermittently patient presently states that she does not have any symptoms. Related Data Home Medications ?Medication ?Instructions ?Recorded ?Confirmed ?Last Taken ?Type fish, borage, flaxseed oils-omega 1 cap PO DAILY 05/15/20 02/02/24 02/01/24 History 3,6,9 cb #1 400 mg-400 mg-400 mg cap ([place] 3-6-9 Complex) multivitamin,ro-mreo-ndyezxgs 1 tablet PO DAILY 05/15/20 02/02/24 02/01/24 History (Complete Multivitamin tablet) turmeric root extract 500 mg 500 mg PO DAILY 05/15/20 02/02/24 02/01/24 History capsule cholecalciferol (vitamin D3) 50 50 mcg PO DAILY 05/22/22 02/02/24 02/01/24 History mcg (2,000 unit) capsule Allergies Allergy/AdvReac Type Severity Reaction Status Date / Time No Known Allergies Allergy Verified 07/31/24 11:11 Review of Systems Review of Systems: As reviewed above in HPI [facility] Past Medical History Medical History Effusion of knee joint Chronic patellofemoral pain of right knee Left knee DJD Right knee DJD Allergies Osteoporosis Osteopenia Normal colonoscopy (~2016) Chronic sinusitis HLD (hyperlipidemia) Lump in throat Surgical History Surgical History H/O lumpectomy History of tubal ligation [place] teeth removed History of appendectomy Family History Family History Mother Diabetes mellitus Hypercholesteremia Cerebrovascular accident Father Diabetes mellitus Heart disease Other Breast cancer Other Thyroid disorder Social History Social History Smoking status: Never smoker Alcohol intake: never Substance use: never Substance use type: does not use Do You Feel Safe in your Home?: Yes Lack of Transportation: No Lack of Food: Never True Current Housing: I Have Housing Concerned About Future Housing: No Difficulty Paying Gas/Electric Bills: No Difficulty Paying for Meds: No Currently Unemployed: No Education: Master's Degree or Higher Difficulty w/ Childcare or Family Care: No Living arrangements: with family Occupation/Education: retired Gender identity (if verbalized by the patient): Female Spiritual care concerns: No Exam Narrative: GENERAL: [Well-appearing, well-nourished, and in no acute distress.] HEAD: [Normocephalic, atraumatic.] EYES: [PERRLA and EOMI.] ENT: Nares clear, no rhinorrhea or epistaxis. Mucous membranes moist. NECK: Supple. CHEST: [Clear to auscultation. No respiratory distress.] HEART: [Regular rate and rhythm]. No murmur heard. [Normal peripheral pulses.] ABDOMEN: [Soft, nondistended], [nontender], [No rigidity or guarding] EXTREMITIES: Normal range of motion. [No edema.] SKIN: Warm, dry, no rash. NEURO: [No focal deficits]. Alert and oriented [x3.] PSYCH: [Normal mood and affect.] Course Vital Signs Vital signs: Vital Signs Temperature 36.4 C 07/31/24 11:19 Pulse Rate 81 07/31/24 11:19 Respiratory Rate 18 07/31/24 11:19 Blood Pressure 135/82 07/31/24 11:19 Pulse Oximetry 100 07/31/24 11:19 Oxygen Delivery Room Air 07/31/24 11:19 Temperature 36.4 C 07/31/24 11:19 Pulse Rate 81 07/31/24 11:19 Respiratory Rate 18 07/31/24 11:19 Blood Pressure 135/82 07/31/24 11:19 Pulse Oximetry 100 07/31/24 11:19 Oxygen Delivery Room Air 07/31/24 11:19 MDM - Nausea/Vomiting/Diarrhea MDM Narrative Medical decision making narrative: 69-year-old otherwise healthy female presenting for evaluation of indigestion for and diarrhea for last 3 days. She is otherwise well-appearing not any acute distress and has normal vital signs without any tachycardia, fever, hypoxia blood pressure elevations. She has a benign physical examination was soft nontender nondistended abdomen, 2+ radial pulses, warm extremities, clear breath sounds, clear S1-S2. She describes indigestion type sensations with feeling like she needs to belch and fullness behind her sternum which likely points to a GI process such as gastritis, gastroenteritis, GERD, indigestion. Low suspicion for ACS however given her age and family history of cardiac disease in her workup was ordered including a troponin, CBC, CMP, chest x-ray, EKG and lipase. She was treated with Pepcid Maalox, placed on groundwater monitoring technician and pulse oximetry and re-evaluated frequently. Workup shows no leukocytosis or anemia. Negative troponin. Negative lipase. Normal renal and hepatic function panel. Chest x-ray without any findings. Patient remained asymptomatic while here in the emergency department. She is safe and stable for discharge home at this time with regular PCP follow-up. She will be given prescriptions for Pepcid and Maalox as needed for indigestion. She was given return precautions and safely discharged home at this time. Medical Records Attestation: I reviewed the patient's medical records. Lab Data Attestation: I reviewed the patient's lab results. 07/31/24 11:26 07/31/24 11:26 Labs: Lab Results 07/31/24 Range/Units 11:26 WBC 7.3 (4.5-10.0) K/mm3 RBC 4.65 (4.2-5.4) M/mm3 Hgb 14.6 (12.0-15.0) g/dL Hct 42.6 (37.0-47.0) % MCV 91.6 (80-100) fl MCH 31.4 (26-34) pg MCHC 34.3 (32-36) g/dl RDW 11.9 (11.5-14.5) % Plt Count 310 (150-375) k/mm3 MPV 8.3 (7.4-10.4) fl Immature Gran % (Auto) 0.3 (0-0.5) % Neut % (Auto) 55.1 (45.5-73.1) % Lymph % (Auto) 37.3 (18.3-44.2) % [place] % (Auto) 5.9 (2.6-8.5) % Eos % (Auto) 0.8 (0-4.4) % Baso % (Auto) 0.6 (0.2-1.2) % Lymph # (Auto) 2.71 (0.9-3.2) K/mm3 [place] # (Auto) 0.4 (0.1-0.6) K/mm3 Eos # (Auto) 0.1 (0-0.3) K/mm3 Baso # (Auto) 0.0 (0.0-0.1) K/mm3 Abs Immat Gran (auto) 0.02 (0.00-0.031) K/mm3 Absolute Neuts (auto) 4.0 (1.3-6.7) K/mm3 Absolute Nucleated RBC 0.000 (0.0-0.012) K/mm3 Nucleated RBC % 0.0 (0.0-0.2) % PT 12.4 (11.1-14.7) Seconds INR 0.9 APTT 24.1 (22.3-36.8) Seconds Sodium 135 L (137-145) mmol/L Potassium 3.9 (3.4-5.0) mmol/L Chloride 98 (98-107) mmol/L Carbon Dioxide 25 (22-30) mmol/L Anion Gap 12 (4-12) mmol/L BUN 10 D (7-17) mg/dL Creatinine 0.63 L (0.7-1.0) mg/dL Estim Creat Clear Calc Not Reportable Estimated GFR > 60 (59 - ) Glucose 130 H (65-110) mg/dL Calcium 10.7 H (8.4-10.2) mg/dL Total Bilirubin 0.6 (0.2-1.3) mg/dL AST 29 (14-36) U/L ALT 23 (6-35) U/L Alkaline Phosphatase 75 (38-126) U/L Troponin I < 0.012 (0.000-0.034) ng/mL Total Protein 8.0 (6.3-8.2) g/dL Albumin 4.8 (3.5-5.1) g/dL Lipase 85 (23-300) U/L Imaging Data Attestation: I personally reviewed and interpreted this imaging study as follows: My impression: Impressions Chest X-Ray 07/31/24 11:33 Impression: Normal chest. ECG Data EKG #1: Attestation: I personally reviewed and interpreted this ECG as follows: ECG completion date: 07/31/24 ECG completion time: : Prior ECG tracings: available for review Interpretation: No ST segment elevations, depressions or inversions. Regular rate, regular rhythm, regular axis. QTC 407, QRS 82, LA 179. No significant interval change compared to prior EKG in the EMR. Overall normal sinus rhythm. Discharge Plan Discharge Clinical Impression: Indigestion, Retrosternal discomfort Patient Disposition: Home, Self-Care Condition: Stable Instructions: Antibiotic Form, Indigestion (ED) Additional Instructions: Your cardiac workup was very reassuring, no signs of any cardiac issue or damage. Your electrolytes and liver/kidney tests were all reassuring. X-ray shows no findings. We will send you home with some Pepcid and Maalox for symptom control of your indigestion. Follow-up with regular doctor. Return with any new or worsening concerns at any time. Patient Language: Welsh Prescriptions: New alum-mag hydroxide-simeth [Maalox Advanced] 200-200-20 mg/5 mL suspension 15 ml PO QID PRN (Reason: indigestion) Qty: 3000 0RF Rx Instructions: administer between meals and at bedtime famotidine [Pepcid] 20 mg tablet 20 mg PO BID Qty: 20 0RF No Action turmeric root extract 500 mg capsule 500 mg PO DAILY fish,bora,flax oils-om3,6,9no1 [[place] 3-6-9 Complex] 400-400-400 mg capsule 1 cap PO DAILY Complete Multivitamin Tablet 1 tablet PO DAILY cholecalciferol (vitamin D3) 50 mcg (2,000 unit) capsule 50 mcg PO DAILY Follow-up/Referrals: Jes Wright MD [Primary Care Provider] - Time of Disposition: 12:25 Quality HEART score for chest pain patients History: slightly suspicious ECG: normal Age: > or = to 65 years Risk factors: no risk factors known Troponin: < or = to 1x normal limit Heart score: 2
[2024-07-31 11:42] LABS: Alanine Aminotransferase 23 U/L (6-35); Albumin Level 4.8 g/dL (3.5-5.1); Alkaline Phosphatase 75 U/L (38-126); Anion Gap 12 mmol/L (4-12); Aspartate Amino Transferase 29 U/L (14-36); Bilirubin,Total 0.6 mg/dL (0.2-1.3); Blood Urea Nitrogen 10 mg/dL (7-17); Calcium 10.7 mg/dL (8.4-10.2); Carbon Dioxide 25 mmol/L (22-30); Chloride 98 mmol/L (98-107); Estimated Glomerular Filt Rate > 60; Glucose 130 mg/dL (65-110); INR 0.9; Lipase 85 U/L (23-300); Partial Thromboplastin Time 24.1 Seconds (22.3-36.8); Potassium 3.9 mmol/L (3.4-5.0); Prothrombin Time 12.4 Seconds (11.1-14.7); Sodium 135 mmol/L (137-145)
[2024-07-31 11:54] LABS: Troponin I < 0.012 ng/mL (0.000-0.034)
[2024-07-31] MEDS: FAMOTIDINE 20 MG/2 ML VIAL IV PUSH (11:59)
[2024-07-31] MEDS: MAG HYDROX/AL HYDROX/SIMETH 30 ML UDC PO (11:59)
== END 2024-07-31 12:39 | disposition home or self-care (01) ==
PROVIDERS: Emergency Medicine; Emergency Provider Student in an Organized Health Care Education/Training Program; PCP Family Medicine
DX: K30 Functional dyspepsia (principal); R07.2 Precordial pain; E78.5 Hyperlipidemia, unspecified; J32.9 Chronic sinusitis, unspecified; M17.0 Bilateral primary osteoarthritis of knee; M81.0 Age-related osteoporosis without current pathological fracture; M85.80 Other specified disorders of bone density and structure, unspecified site; R94.31 Abnormal electrocardiogram [ECG] [EKG]
CPT/HCPCS: 36415; 71045; 80053; 83690; 84484; 85025; 85610; 85730; 93005; 96374; 99284; A9270

== ENCOUNTER 2025-02-21 08:04 | Outpatient (CLI) | payer MEDICARE, SELFPAY ==
--- NOTE | ~2025-02-21 | MM_ITS ---
EXAMINATION: MM screening [facility] BI w miko HISTORY: Screening TECHNIQUE: Craniocaudal and mediolateral oblique 3-D tomosynthesis images were obtained and synthetic 2-D images were generated. CAD analysis was submitted and interpreted. COMPARISON: Comparison to multiple prior studies sequentially, with oldest reviewed study dated 07/16/2021. BREAST PARENCHYMAL COMPOSITION: Not dense: There are scattered areas of fibroglandular density. FINDINGS: There is no evidence of suspicious mass, calcification, or architectural distortion to suggest malignancy in either breast. There has been no suspicious interval change. IMPRESSION: 1. No mammographic evidence of malignancy. 2. Recommend routine screening mammography in one year. BI-RADS Category 1: Negative Reviewed, dictated and finalized at location B.
== END 2025-02-21 08:05 | disposition home or self-care (01) ==
LOC: MICIMG 08:05
PROVIDERS: PCP Family Medicine; Visit Provider Family Medicine
DX: Z12.31 Encounter for screening mammogram for malignant neoplasm of breast (principal)
CPT/HCPCS: 77063; 77067

== ENCOUNTER 2025-03-24 12:20 | Outpatient (CLI) | payer MEDICARE, SELFPAY ==
--- NOTE | ~2025-03-24 | XR_ITS ---
EXAMINATION: XR shoulder LT min 2V, 03/24/2025 12:28 CDT HISTORY: M25.512 - Pain in left shoulder COMPARISON: No comparisons available. Findings: No acute fracture or malalignment. Severe degenerative changes Soft tissues unremarkable. Impression: No acute fracture or malalignment. Reviewed, dictated and finalized at location P. Impression: No acute fracture or malalignment.
== END 2025-03-24 12:21 | disposition home or self-care (01) ==
LOC: MICIMG 12:21
DX: M25.512 Pain in left shoulder (principal)
CPT/HCPCS: 73030